=== PATIENT | male | born 1930 | race Caucasian/White ===

== ENCOUNTER 2018-01-06 21:12 | Emergency (ER) | payer OTHER, MEDICARE ==
[~2018-01-06] VITALS: Ht 170.2 cm; Wt 64.4 kg
[~2018-01-06 21:12] MED LIST: ACET-685 PO; ALBU0.63 NEB; ALLO300T PO; CETI10TA18 PO; CILO50TA PO; CIPR500T86 PO; COLC0.6T37 PO; CYCL10TA2 PO; DIPH1TAB PO; DOCU100C28 PO; DOCU250C8 PO; GABA300C10 PO; HYDR-3101 PO; LUBI24CA7 PO; PANT40TA3 PO; POLY17PO5 PO; RAMI2.5C28 PO; RIVA10TA PO; ROPI0.252 PO; ROPI0.5T PO; TRAM50TA PO; WARF3TAB52 PO
[2018-01-06 21:23] VITALS: BP 121/75
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
[2018-01-06] MEDS ORDERED: BOOSTRIX VACCINE SYRINGE IM ONE (21:30)
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
[2018-01-06 22:08] VITALS: BP 119/74
--- NOTE | 2018-01-06 22:08 | NUR ---
x-ray arrived back to the room from x-ray. c/o pain increasing in the left arm. notified the doctor. will give meds as soon as they are ordered. vital signs remain stable. comfort measures provided. family x 1 in the room. lw
[2018-01-06] MEDS ORDERED: SUBLIMAZE IV STA (22:12)
[2018-01-06] MEDS ORDERED: SUBLIMAZE ONE (22:17)
--- NOTE | 2018-01-06 22:18 | DIREP ---
PROCEDURE:XRAY FOREARM 2 VWS-LT COMPARISON:None. INDICATIONS:injury FINDINGS: BONES:Acute oblique/spiral fracture identified involving the midshaft of the right radius. On the AP view, there is radial displacement of the distal fracture segment by approximately 6.4 mm. On the lateral view there is angulation with the distal fracture segment being dorsal by approximately 8 mm and dorsal angulation. No fracture of the left ulna is seen. JOINTS:Normal. SOFT TISSUES:Extensive vascular calcifications involving the radial and ulnar artery's. OTHER:No additional findings. CONCLUSION:Acute spiral/oblique fracture of the midshaft of the left radius with radial and dorsal displacement of the distal fracture segment with dorsal angulation. No fracture of the ulna is seen on these two views. Dictated by: Stewart España MD on 01/06/2018 at 10:15 PM
--- NOTE | 2018-01-06 22:31 | DIREP ---
PROCEDURE: CT SPINE CERVICAL W/O COMPARISON:None. INDICATIONS:injury FINDINGS: ALIGNMENT:Mild levoconvexity, which is felt to be positional.. VERTEBRAE:Degenerative calcified pannus C1-C2.. PARASPINAL AREA:Normal. OTHER:Calcifications of bilateral carotid arteries incidentally noted. CERVICAL DISC LEVELS Multilevel disc space narrowing and disc osteophyte complexes with bilateral facet and uncovertebral joint hypertrophy. Moderate spinal canal stenosis noted at C4-C5 in C5-C6 from posterior disc bulge. No severe spinal canal stenosis. There is multilevel varying degrees of neural foraminal stenosis bilaterally. CONCLUSION:No visualized acute fracture with multilevel degenerative changes. Moderate spinal canal stenosis C4-C5 and C5-C6. Dictated by: Rubén Childers DO on 01/06/2018 at 10:25 PM
--- NOTE | 2018-01-06 22:34 | DIREP ---
PROCEDURE:XRAY WRIST MIN 3VW-LT COMPARISON:None. INDICATIONS:injury FINDINGS: BONES:Mildly comminuted spiral fracture involving the mid diaphysis of the left radius. There is approximately 6 mm of dorsal displacement of the distal fracture fragment. 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 SOFT TISSUES:Normal. OTHER:Atherosclerotic calcifications noted. CONCLUSION:Spiral fracture of the mid diaphysis of the left radius as detailed above. Approximately 6 mm dorsal displacement of the distal fracture fragment. No additional fractures seen. Dictated by: Rubén Childers DO on 01/06/2018 at 10:30 PM
--- NOTE | 2018-01-06 22:55 | NUR ---
splint left arm splint placed on patient after cleaning two skin tears on the top of the left hand. triple A ointment applied and bandages. lw
[2018-01-06 22:56] VITALS: BP 123/72
== END 2018-01-06 23:40 | disposition home or self-care (01) ==
LOC: ER 21:12 → EDBD 21:12 → ER 23:40
DX: S52.392A Other fracture of shaft of radius, left arm, initial encounter for closed fracture (principal); S63.502A Unspecified sprain of left wrist, initial encounter; S13.9XXA Sprain of joints and ligaments of unspecified parts of neck, initial encounter; E11.9 Type 2 diabetes mellitus without complications; I10 Essential (primary) hypertension; Z95.0 Presence of cardiac pacemaker; Z79.01 Long term (current) use of anticoagulants; Z79.899 Other long term (current) drug therapy; V49.9XXA Car occupant (driver) (passenger) injured in unspecified traffic accident, initial encounter; Y93.89 Activity, other specified; Y92.488 Other paved roadways as the place of occurrence of the external cause; Y99.8 Other external cause status
CPT/HCPCS: 29125; 72125; 73090; 73110; 96374; 99284; J3010

== ENCOUNTER 2018-06-27 16:18 | Emergency (ER) | payer MEDICARE ==
[~2018-06-27] VITALS: Ht 167.6 cm; Wt 70.8 kg
[~2018-06-27 16:18] MED LIST changes: -ROPI0.252 PO; +ROPI0.254 PO
--- NOTE | 2018-06-27 16:20 | NUR ---
ARRIVAL PATIENT TO ROOM 4, W/C, PATIENT STATES THAT HE HAD "TWO LITTLE PAINS AROUND HIS CHEST, THAT WENT AWAY. FIGURED I WOULD COME GET CHECKED." PATIENT DENIES ANY PAIN AT THIS TIME. 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 DEMPSEY ONCE. ASSESSMENT COMPLETED, CONNECTED TO ALL MONITORS, CITY COLLECTOR IN PLACE. AWAITING MD SCHNEIDER.
[2018-06-27 16:29] VITALS: BP 101/62
--- NOTE | 2018-06-27 16:47 | PCM.EKG ---
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
[2018-06-27 16:49] LABS: BASOPHIL % 0.4 % (0.0-0.2); EOSINOPHIL # 0.7 10^3/uL (0.0-0.2); EOSINOPHIL % 9.4 % (0.0-5.0); HEMOGLOBIN 11.8 g/dL (13.9-16.3); LYMPHOCYTES # 2.5 10^3/uL (1.0-4.8); LYMPHOCYTES % 35.7 % (24.0-44.0); MEAN CELL HGB 30.6 pg (26-34); MEAN CELL HGB CONCENTRATION 33.3 g/dL (33-37); MEAN CORP VOLUME 91.9 fL (78-100); MEAN PLATELET VOLUME 9.9 fL (7.8-11.0); MONOCYTES # 0.6 10^3/uL (0.3-0.8); MONOCYTES % 8.8 % (5.0-12.0); NEUTROPHIL # 3.2 10^3/uL (1.8-7.7); NEUTROPHILS % 45.7 % (41.0-85.0); RED CELL DISTRIBUTION WIDTH 15.9 % (11.5-14.5); WHITE BLOOD CELL 7.1 10^3/uL (4.5-11.0)
[2018-06-27 17:12] LABS: CARBON DIOXIDE 24.9 mmol/L (20.0-32); GLUCOSE 109 mg/dL (70-110)
[2018-06-27 17:13] LABS: ALANINE AMINOTRANSFERASE(ML) 21 U/L (12-78); ALKALINE PHOSPHATASE 64 U/L (50-136); ASPARTATE AMINO TRANSFERASE 20 U/L (0-35)
--- NOTE | 2018-06-27 17:15 | DIREP ---
PROCEDURE:CHEST 1 VIEW COMPARISON:[facility], CR, XRAY CHEST 2 VWS, 03/10/2016, 03:05 PM. INDICATIONS:Chest pain FINDINGS: LUNGS/PLEURA:Calcified granuloma at the left costophrenic angle. Shallow expansion of the lungs. The lungs are clear. No pneumonia, heart failure or effusions are seen. No pneumothorax, pneumomediastinum, aortic aneurysm or mediastinal widening is seen. VASCULATURE:Normal. Unremarkable pulmonary vasculature. CARDIAC:Normal. No cardiac silhouette abnormality or cardiomegaly. Right-sided approach for bipolar pacemaker lead placement. Stable since last study. EKG leads identified. MEDIASTINUM:Normal. No visible mass or adenopathy. BONES:Normal. No fracture or visible bony lesion. OTHER:Negative. CONCLUSION:Stable appearance of the right-sided pacemaker. No active disease. A calcified granuloma in the left lung base. Dictated by: Stewart España MD on 06/27/2018 at 05:13 PM
--- NOTE | 2018-06-27 17:17 | ER.PDOC ---
General Chief Complaint: Chest Pain-Cardiac Nature Stated Complaint: CHEST PAIN Time seen by MD: 16:45 Source: patient Exam Limitations: no limitations History of Present Illness Initial Comments Twitching left chest for a few seconds which went away. He decided to come to the ED to be checked. He denies any chest pain at this time. Timing/Duration: gone now Severity/Quality: mild Radiation: no radiation Activities at Onset: rest Nitro Today/Relief: No Nitro Taken Today Aspirin Today: 325 mg x 1 Associated Symptoms: denies symptoms Allergies: Coded Allergies: No Known Allergies (Unverified , 05/23/17) Home Meds Reported Medications Ropinirole Hcl (REQUIP) 0.5 Mg Tablet, 0.25 MG PO TID, TABLET 12/07/16 Albuterol Sulfate (ALBUTEROL SULFATE) 0.63 Mg/3 Ml Vial.neb, 1 VIAL NEB QID, # 150 MILLILITER 1 Refill 12/07/16 Tramadol Hcl (TRAMADOL HCL) 50 Mg Tablet, 1 TAB PO Q4 for PAIN, #90 TAB 12/07/16 Rivaroxaban (XARELTO) 10 Mg Tablet, 15 MG PO DAILY, TABLET 12/07/16 Ramipril 2.5MG (ALTACE 2.5MG) 2.5 Mg Capsule, 1.25 MG PO DAILY, CAPSULE 03/10/16 Lubiprostone (AMITIZA) 24 Mcg Capsule, 1 CAP PO BID PRN for CONSTIPATION, #60 CAP 5 Refills 01/08/16 Cetirizine Hcl (CETIRIZINE HCL) 10 Mg Tablet, 1 TAB PO DAILY PRN for ALLERGERIES , #30 TAB 5 Refills 01/08/16 Docusate Sodium (DOCUSATE SODIUM) 100 Mg Capsule, 250 MG PO DAILY, CAPSULE 05/20/14 Gabapentin (GABAPENTIN) 300 Mg Capsule, 1 CAP PO TID, #90 CAP 5 Refills 03/24/14 Allopurinol (ALLOPURINOL) 300 Mg Tablet, 1 TAB PO DAILY, #30 TAB 5 Refills 03/24/14 Past Medical History Medical History: diabetes, hypertension Surgical History: cholecystectomy, pacemaker/ICD, other Social History Smoking: non-smoker Alcohol Use: none Drug Use: none Constitutional: no symptoms reported EENTM: no symptoms reported Respiratory: no symptoms reported Cardiovascular: see HPI Gastrointestinal: no symptoms reported Genitourinary: no symptoms reported All Other Systems: Reviewed and Negative Physical Exam General Appearance: No Apparent Distress, WD/WN Neck: Non-Tender, Full Range of Motion, Supple, Normal Inspection Respiratory: chest non-tender, lungs clear, normal breath sounds, no respiratory distress, no accessory muscle use Cardiovascular: Normal Peripheral Pulses, Regular Rate, Rhythm, No Edema, No Gallop, No JVD, No Murmur Gastrointestinal: Normal Bowel Sounds, No Organomegaly, No Pulsatile Mass, Non Tender, Soft Extremities: Normal Range of Motion, Non-Tender, Normal Inspection, No Pedal Edema, No Calf Tenderness, Normal Capillary Refill Neurologic/Psychiatric: information technology coordinator II-XII NML as Tested, No Motor/Sensory Deficits, Alert, Normal Mood/Affect, Oriented x 3 Skin: Normal Color, Warm/Dry Results/Orders Results/Orders Laboratory Tests Test 06/27/18 16:42 White Blood Count 7.1 10^3/uL (4.5-11.0) Red Blood Count 3.85 10^6/uL (4.50-5.90) Hemoglobin 11.8 g/dL (13.9-16.3) Hematocrit 35.4 % (37.0-53.0) Mean Corpuscular Volume 91.9 fL (78-100) Mean Corpuscular Hemoglobin 30.6 pg (26-34) Mean Corpuscular Hemoglobin Concent 33.3 g/dL (33-37) Red Cell Distribution Width 15.9 % (11.5-14.5) Platelet Count 176 10^3/uL (150-400) Mean Platelet Volume 9.9 fL (7.8-11.0) Neutrophils (%) (Auto) 45.7 % (41.0-85.0) Lymphocytes (%) (Auto) 35.7 % (24.0-44.0) Monocytes (%) (Auto) 8.8 % (5.0-12.0) Neutrophils # (Auto) 3.2 10^3/uL (1.8-7.7) Lymphocytes # (Auto) 2.5 10^3/uL (1.0-4.8) Monocytes # (Auto) 0.6 10^3/uL (0.3-0.8) Absolute Immature Granulocyte (auto 0 10^3 u/L (0-2) Eosinophils % 9.4 % (0.0-5.0) Basophils % 0.4 % (0.0-0.2) Basophils # 0.0 10^3/uL (0.0-0.1) Eosinophil Count 0.7 10^3/uL (0.0-0.2) Sodium Level 142 mmol/L (132-145) Potassium Level 4.4 mmol/L (3.6-5.2) Chloride Level 106.0 mmol/L (96-109) Carbon Dioxide Level 24.9 mmol/L (20.0-32) Anion Gap 15.5 Blood Urea Nitrogen 35 mg/dL (7-18) Creatinine 1.64 mg/dL (0.59-1.40) Estimated GFR () 48.4 (>/=60) BUN/Creatinine Ratio 21.0 Glucose Level 109 mg/dL (70-110) Calcium Level 10.0 mg/dL (8.4-10.5) Total Bilirubin 0.4 mg/dL (0.2-1.0) Aspartate Amino Transf (AST/SGOT) 20 U/L (0-35) Alanine Aminotransferase (ALT/SGPT) 21 U/L (12-78) Alkaline Phosphatase 64 U/L (50-136) Total Creatine Kinase 75 U/L (39-308) Troponin I < 0.02 ng/mL (0.00-0.05) Pro-B-Type Natriuretic Peptide 250 pg/mL (0-450) Total Protein 7.2 g/dL (6.4-8.2) Albumin 3.9 g/dL (3.4-5.0) Globulin 3.3 Percent Immature Gran (Cell Imm) 0.00 % (0.00-0.50) Progress Progress Patient denies any chest pain in the ED. Feels fine to go home. Declined to be observed. Departure Time of Disposition: 17:27 Disposition: 01 HOME, SELF-CARE Impression: Primary Impression: Nonspecific chest pain Additional Impression: Anxiety Condition: Stable Referrals: ARIEL CAMPBELL STRAP BUCKLER (PCP) PRIMARY CARE PROVIDER Additional Instructions: F/U with your PCP tomorrow. Duration or Time Spent with Pa: 60 mins Problem Qualifiers LOI CUBA MD Jun 27, 2018 17:17
[2018-06-27 17:40] VITALS: BP 100/56
[2018-06-27 17:44] VITALS: BP 101/62
== END 2018-06-27 17:40 | disposition home or self-care (01) ==
LOC: ER 16:18
DX: F41.9 Anxiety disorder, unspecified (principal); E11.9 Type 2 diabetes mellitus without complications; I10 Essential (primary) hypertension; Z90.49 Acquired absence of other specified parts of digestive tract; Z95.0 Presence of cardiac pacemaker; Z79.899 Other long term (current) drug therapy
CPT/HCPCS: 36415; 71045; 80053; 82550; 83880; 84484; 85025; 93005; 99284

== ENCOUNTER 2018-12-15 11:01 | Emergency (ER) | payer MEDICARE ==
[~2018-12-15] VITALS: Ht 162.6 cm; Wt 60.8 kg
[2018-12-15 11:31] VITALS: BP 96/52
--- NOTE | 2018-12-15 11:50 | PCM.EKG ---
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
[2018-12-15 11:55] LABS: BASOPHIL % 0.3 % (0.0-0.2); EOSINOPHIL # 0.4 10^3/uL (0.0-0.2); EOSINOPHIL % 4.8 % (0.0-5.0); HEMOGLOBIN 11.7 g/dL (13.9-16.3); LYMPHOCYTES # 2.5 10^3/uL (1.0-4.8); LYMPHOCYTES % 29.2 % (24.0-44.0); MEAN CELL HGB 31.4 pg (26-34); MEAN CELL HGB CONCENTRATION 34.4 g/dL (33-37); MEAN CORP VOLUME 91.2 fL (78-100); MEAN PLATELET VOLUME 9.5 fL (7.8-11.0); MONOCYTES # 0.8 10^3/uL (0.3-0.8); MONOCYTES % 8.6 % (5.0-12.0); NEUTROPHILS % 56.9 % (41.0-85.0); RED CELL DISTRIBUTION WIDTH 14.9 % (11.5-14.5); WHITE BLOOD CELL 8.7 10^3/uL (4.5-11.0)
[2018-12-15] MEDS ORDERED: ANTIVERT PO STA (11:56)
[2018-12-15 12:15] LABS: CALCIUM 10.3 mg/dL (8.4-10.5); CARBON DIOXIDE 21.4 mmol/L (20.0-32)
[2018-12-15 13:07] VITALS: BP 110/67
--- NOTE | 2018-12-15 13:11 | ER.PDOC ---
General Chief Complaint: General Complaint Stated Complaint: DIZZINESS,LOW BLOOD PRESSURE PER DOCTOR/ LIGHT HEADED Time seen by MD: 13:00 Source: patient Exam Limitations: no limitations History of Present Illness Occurred: yesterday Severity: mild Associated Symptoms: sense of movement, spinning, weakness, light headness Decreased Ability to Stand: off balance Usually: walks w/o assistance Worsened By: changing position, movement of head, standing postion Prior symptoms/Treatment: Similar symptoms previous Allergies: Coded Allergies: No Known Allergies (Unverified , 05/23/17) Home Meds Reported Medications Ropinirole Hcl (REQUIP) 0.5 Mg Tablet, 0.25 MG PO TID, TABLET 12/07/16 Albuterol Sulfate (ALBUTEROL SULFATE) 0.63 Mg/3 Ml Vial.neb, 1 VIAL NEB QID, #150 MILLILITER 1 Refill 12/07/16 Tramadol Hcl (TRAMADOL HCL) 50 Mg Tablet, 1 TAB PO Q4 for PAIN, #90 TAB 12/07/16 Rivaroxaban (XARELTO) 10 Mg Tablet, 15 MG PO DAILY, TABLET 12/07/16 Ramipril 2.5MG (ALTACE 2.5MG) 2.5 Mg Capsule, 1.25 MG PO DAILY, CAPSULE 03/10/16 Lubiprostone (AMITIZA) 24 Mcg Capsule, 1 CAP PO BID PRN for CONSTIPATION, #60 CAP 5 Refills 01/08/16 Cetirizine Hcl (CETIRIZINE HCL) 10 Mg Tablet, 1 TAB PO DAILY PRN for ALLERGERIES, #30 TAB 5 Refills 01/08/16 Docusate Sodium (DOCUSATE SODIUM) 100 Mg Capsule, 250 MG PO DAILY, CAPSULE 05/20/14 Gabapentin (GABAPENTIN) 300 Mg Capsule, 1 CAP PO TID, #90 CAP 5 Refills 03/24/14 Allopurinol (ALLOPURINOL) 300 Mg Tablet, 1 TAB PO DAILY, #30 TAB 5 Refills 03/24/14 Past Medical History Medical History: cardiac problems, diabetes, hypertension Surgical History: pacemaker/ICD Social History Smoking: non-smoker Alcohol Use: none Drug Use: none Reviewed Nursing Reviewed: Vital Signs, Abn. Noted Review of Systems All Other Systems: Reviewed and Negative Physical Exam General Appearance: alert, no distress EENT: nml eye inspection, PERRL, no nystagmus, nml ENT inspection, pharynx nml, TM's nml Neck: supple Respiratory: no resp distress, breath sounds nml CVS: reg rate & rhythm, heart sounds.nml Abdomen: non-tender, no organomegaly, no distention Skin: color nml, no rash, warm/dry Extremities: non-tender, nml ROM, no pedal edema Neuro/Psych: nml orientation, nml speech/cognition, nml mood/affect Cranial Nerves: nml as tested, no evidence of acute CVA Cerebellar: nml as tested Sensorimotor: nml motor, nml sensation Results/Orders Results/Orders Orders - JAMES BARRAZA MD Cbc With Auto Diff (12/15/18 11:42) Comprehensive Metabolic Panel (12/15/18 11:42) Creatine Kinase (12/15/18 11:42) Troponin I (12/15/18 11:42) Probnp B-Type Model And Mold Maker Plaster (12/15/18 11:42) PT (12/15/18 11:42) Partial Thromboplastin Time. (12/15/18 11:42) Helicobacter Pylori (12/15/18 11:42) D-Dimer (12/15/18 11:42) Ekg-Routine (12/15/18 11:42) Meclizine Hcl (Antivert) (12/15/18 11:56) Vital Signs Date Time Temp Pulse Resp B/P (MAP) Pulse Ox O2 Delivery O2 Flow Rate FiO2 12/15/18 13:07 65 18 110/67 (81) 97 Room Air 12/15/18 11:31 98.0 77 18 96/52 (67) 99 Room Air 98.0 12/15/18 11:28 98.0 77 18 98.0 12/15/18 11:28 98.4 75 18 99 Room Air 98.4 Administered Medications Medications (Trade) Dose Ordered Sig/Manuelito Route PRN Reason Start Time Stop Time Status Last Admin Dose Admin Meclizine HCl (Antivert) 25 mg STAT STAT PO 12/15/18 11:56 12/15/18 11:57 DC 12/15/18 12:01 25 MG Laboratory Tests Test 12/15/18 11:48 White Blood Count 8.7 10^3/uL (4.5-11.0) Red Blood Count 3.73 10^6/uL (4.50-5.90) L Hemoglobin 11.7 g/dL (13.9-16.3) L Hematocrit 34.0 % (37.0-53.0) L Mean Corpuscular Volume 91.2 fL (78-100) Mean Corpuscular Hemoglobin 31.4 pg (26-34) Mean Corpuscular Hemoglobin Concent 34.4 g/dL (33-37) Red Cell Distribution Width 14.9 % (11.5-14.5) H Platelet Count 202 10^3/uL (150-400) Mean Platelet Volume 9.5 fL (7.8-11.0) Neutrophils (%) (Auto) 56.9 % (41.0-85.0) Lymphocytes (%) (Auto) 29.2 % (24.0-44.0) Monocytes (%) (Auto) 8.6 % (5.0-12.0) Neutrophils # (Auto) 5.0 10^3/uL (1.8-7.7) Lymphocytes # (Auto) 2.5 10^3/uL (1.0-4.8) Monocytes # (Auto) 0.8 10^3/uL (0.3-0.8) Absolute Immature Granulocyte (auto 0.02 10^3 u/L (0-2) Immature Granulocytes % 0.20 % (0.00-0.50) Eosinophils % 4.8 % (0.0-5.0) Basophils % 0.3 % (0.0-0.2) H Basophils # 0.0 10^3/uL (0.0-0.1) Eosinophil Count 0.4 10^3/uL (0.0-0.2) H Prothrombin Time 11.0 SEC (9.8-11.9) Prothrombin Time INR (Non-Therap) 1.1 PTT 27.6 SEC (24.67-30.72) D-Dimer 0.41 mg/L (0.19-0.49) Sodium Level 140 mmol/L (132-145) Potassium Level 5.0 mmol/L (3.6-5.2) Chloride Level 105.0 mmol/L (96-109) Carbon Dioxide Level 21.4 mmol/L (20.0-32) Anion Gap 18.6 Blood Urea Nitrogen 50 mg/dL (7-18) H Creatinine 1.98 mg/dL (0.59-1.40) H Estimated GFR () 38.9 (>/=60) BUN/Creatinine Ratio 25.0 Glucose Level 94 mg/dL (70-110) Calcium Level 10.3 mg/dL (8.4-10.5) Total Bilirubin 0.4 mg/dL (0.2-1.0) Aspartate Amino Transferase (AST) 20 U/L (0-35) Alanine Aminotransferase (ALT) 17 U/L (12-78) Alkaline Phosphatase 61 U/L (50-136) Total Creatine Kinase 88 U/L (39-308) Troponin I 0.02 ng/mL (0.00-0.05) Pro-B-Type Natriuretic Peptide 241 pg/mL (0-450) Total Protein 7.1 g/dL (6.4-8.2) Albumin 3.7 g/dL (3.4-5.0) Globulin 3.4 Helicobacter pylori Screen NEGATIVE (NEGATIVE) EKG/XRAY/CT/US EKG Comments: PACED RYTHM Departure Time of Disposition: 14:00 Disposition: 01 HOME, SELF-CARE Impression: Primary Impression: Dizziness Additional Impression: Medication adverse effect Condition: Improved Referrals: ARIEL CAMPBELL DARKROOM TECHNICIAN (PCP) PRIMARY CARE PROVIDER Duration or Time Spent with Pa: 1 HR Problem Qualifiers JAMES BARRAZA MD December 15, 2018 13:11
[2018-12-15 13:13] VITALS: BP 110/67
== END 2018-12-15 13:12 | disposition home or self-care (01) ==
LOC: ER 11:01
DX: R42 Dizziness and giddiness (principal); T50.905A Adverse effect of unspecified drugs, medicaments and biological substances, initial encounter; R53.1 Weakness; E11.9 Type 2 diabetes mellitus without complications; I10 Essential (primary) hypertension; Z79.899 Other long term (current) drug therapy; Z95.0 Presence of cardiac pacemaker; Z79.01 Long term (current) use of anticoagulants; Z79.891 Long term (current) use of opiate analgesic; Y92.89 Other specified places as the place of occurrence of the external cause
CPT/HCPCS: 36415; 80053; 82550; 83880; 84484; 85025; 85379; 85610; 85730; 86677; 93005; 99285; J8597

== ENCOUNTER 2018-12-23 12:29 | Emergency (ER) | payer MEDICARE ==
[~2018-12-23] VITALS: Ht 167.6 cm; Wt 60.8 kg
[2018-12-23 12:54] VITALS: BP 119/70
--- NOTE | 2018-12-23 12:55 | ER.PDOC ---
General Chief Complaint: Trauma Stated Complaint: HEAD INJURY Time seen by MD: 12:52 Source: patient Exam Limitations: no limitations History of Present Illness Initial Comments Pt fell backward on his porch, after tripping, no LOC Occurred: just prior to arrival Where: home Severity: mild Location: occipital (left) Method of Injury: fell Allergies: Coded Allergies: No Known Allergies (Unverified , 05/23/17) Home Meds Reported Medications Ropinirole Hcl (REQUIP) 0.5 Mg Tablet, 0.25 MG PO TID, TABLET 12/07/16 Albuterol Sulfate (ALBUTEROL SULFATE) 0.63 Mg/3 Ml Vial.neb, 1 VIAL NEB QID, #150 MILLILITER 1 Refill 12/07/16 Tramadol Hcl (TRAMADOL HCL) 50 Mg Tablet, 1 TAB PO Q4 for PAIN, #90 TAB 12/07/16 Rivaroxaban (XARELTO) 10 Mg Tablet, 15 MG PO DAILY, TABLET 12/07/16 Ramipril 2.5MG (ALTACE 2.5MG) 2.5 Mg Capsule, 1.25 MG PO DAILY, CAPSULE 03/10/16 Lubiprostone (AMITIZA) 24 Mcg Capsule, 1 CAP PO BID PRN for CONSTIPATION, #60 CAP 5 Refills 01/08/16 Cetirizine Hcl (CETIRIZINE HCL) 10 Mg Tablet, 1 TAB PO DAILY PRN for ALLERGERIES, #30 TAB 5 Refills 01/08/16 Docusate Sodium (DOCUSATE SODIUM) 100 Mg Capsule, 250 MG PO DAILY, CAPSULE 05/20/14 Gabapentin (GABAPENTIN) 300 Mg Capsule, 1 CAP PO TID, #90 CAP 5 Refills 03/24/14 Allopurinol (ALLOPURINOL) 300 Mg Tablet, 1 TAB PO DAILY, #30 TAB 5 Refills 03/24/14 Past Medical History Medical History: diabetes, hypertension Surgical History: back, pacemaker/ICD Social History Smoking: non-smoker Alcohol Use: none Drug Use: none Review of Systems Constitutional: no symptoms reported Eyes: no symptoms reported Ears, Nose, Mouth, Throat: no symptoms reported Respiratory: no symptoms reported Cardiovascular: no symptoms reported Gastrointestinal: no symptoms reported Genitourinary: no symptoms reported Musculoskeletal: no symptoms reported Skin: see HPI Psychiatric/Neurological: see HPI Endocrine: no symptoms reported Hematologic/Lymphatic: no symptoms reported Physical Exam General Appearance: Alert, No Apparent Distress, WD/WN Head: Contusions (left occipital/mastoid area) Eye: PERRL, EOMI, No nystagmus ENT: Nml external inspection, Pharynx nml Neck: non-tender, painless ROM, trachea midline Cardiovascular/Respiratory: Regular Rate, Rhythm, No M/R/G, Normal Peripheral Pulses, No JVD, Normal Breath Sounds, No Respiratory Distress Gastrointestinal: Normal Bowel Sounds, No Organomegaly, No Pulsatile Mass, Non Tender, Soft Back: Normal Inspection, No CVA Tenderness, No Vertebral Tenderness Extremities: Normal Range of Motion, Non-Tender, Normal Inspection, No Pedal Edema, No Calf Tenderness, Normal Capillary Refill NEURO/PSYCH: Alert, Oriented x3, Cooperative, Interactive, Mood/affect nml Cranial Nerves: Normal Hearing, Normal Speech, PERRL Coordination/Gait: Normal Finger to Nose, Normal Gait Motor/Sensory: No Motor Deficit, No Sensory Deficit, No Pronator Drift, Negative Babinski's Sign Skin: Normal Color, Warm/Dry Lymphatic: No Adenopathy [place] Coma Score Best Eye Response: (4) Open Spontaneously Best Verbal Response: (5) Oriented Best Motor Response: (6) Obeys Commands Results/Orders Results/Orders Orders - DAVID PALUMBO MD Ct Head Wo Contrast (12/23/18 12:53) Vital Signs Date Time Temp Pulse Resp B/P (MAP) Pulse Ox O2 Delivery O2 Flow Rate FiO2 12/23/18 12:54 97.7 76 14 119/70 (86) 98 Room Air 97.7 12/23/18 12:54 14 12/23/18 12:48 97.7 76 14 97.7 12/23/18 12:48 97.7 76 14 98 Room Air 97.7 12/15/18 13:13 65 Departure Time of Disposition: 13:54 Disposition: 01 HOME, SELF-CARE Impression: Primary Impression: Head injury Condition: Stable Referrals: ARIEL CAMPBELL ACID CORRECTION HAND (PCP) PRIMARY CARE PROVIDER Duration or Time Spent with Pa: DAVID SANTOS MD December 23, 2018 12:55
--- NOTE | 2018-12-23 13:08 | NUR ---
CT PT BACK FROM CT SCAN.
--- NOTE | 2018-12-23 13:52 | DIREP ---
PROCEDURE: CT HEAD BRAIN W/O CONTRAST TECHNIQUE:Contiguous 5.0 mm transaxial sections were obtained from the vertex to skull base without the use of intravenous contrast. COMPARISON:CT, CT SPINE CERVICAL W/O, 01/06/2018, 09:44 PM. INDICATIONS:Head injury FINDINGS: VENTRICLES:Mildly prominent, consistent with degree of age related cortical atrophy. CEREBRUM:No acute intracranial hemorrhage or mass effect. Hypoattenuation throughout the deep periventricular and subcortical white matter, consistent with chronic small vessel ischemia. CEREBELLUM:Normal. BRAINSTEM:Normal. SKULL:Normal. SINUSES:Well pneumatized. OTHER:Negative. CONCLUSION: 1. No acute intracranial hemorrhage or mass effect. 2. Age-related involutional and chronic microvascular ischemic changes. Dictated by: Chris España MD on 12/23/2018 at 01:49 PM
[2018-12-23 14:26] VITALS: BP 119/70
== END 2018-12-23 14:20 | disposition home or self-care (01) ==
LOC: ER 12:29
DX: S00.03XA Contusion of scalp, initial encounter (principal); E11.9 Type 2 diabetes mellitus without complications; I10 Essential (primary) hypertension; Z95.0 Presence of cardiac pacemaker; Z79.899 Other long term (current) drug therapy; W01.0XXA Fall on same level from slipping, tripping and stumbling without subsequent striking against object, initial encounter; Y93.89 Activity, other specified; Y92.89 Other specified places as the place of occurrence of the external cause; Y99.8 Other external cause status
CPT/HCPCS: 70450; 99284

== ENCOUNTER 2019-01-01 14:54 | Emergency (ER) | payer MEDICARE ==
[~2019-01-01] VITALS: Ht 165.1 cm; Wt 64.0 kg
[2019-01-01 18:49] VITALS: BP 121/59
--- NOTE | 2019-01-01 18:57 | ER.PDOC ---
General Chief Complaint: Requesting Medical Care Stated Complaint: LEFT FOOT SWELLING HOLDING HEAT TRAVEL OUT OF US: No Time seen by MD: 19:00 Source: patient Exam Limitations: no limitations History of Present Illness Timing/Duration: 24 hours Severity: mild Modifying Factors: improves with cold therapy, improves with movement, improves with rest Associated Symptoms: denies symptoms Allergies: Coded Allergies: No Known Allergies (Unverified , 05/23/17) Home Meds Reported Medications Ropinirole Hcl (REQUIP) 0.5 Mg Tablet, 0.25 MG PO TID, TABLET 12/07/16 Albuterol Sulfate (ALBUTEROL SULFATE) 0.63 Mg/3 Ml Vial.neb, 1 VIAL NEB QID, #150 MILLILITER 1 Refill 12/07/16 Tramadol Hcl (TRAMADOL HCL) 50 Mg Tablet, 1 TAB PO Q4 for PAIN, #90 TAB 12/07/16 Rivaroxaban (XARELTO) 10 Mg Tablet, 15 MG PO DAILY, TABLET 12/07/16 Ramipril 2.5MG (ALTACE 2.5MG) 2.5 Mg Capsule, 1.25 MG PO DAILY, CAPSULE 03/10/16 Lubiprostone (AMITIZA) 24 Mcg Capsule, 1 CAP PO BID PRN for CONSTIPATION, #60 CAP 5 Refills 01/08/16 Cetirizine Hcl (CETIRIZINE HCL) 10 Mg Tablet, 1 TAB PO DAILY PRN for ALLERGER IES, #30 TAB 5 Refills 01/08/16 Docusate Sodium (DOCUSATE SODIUM) 100 Mg Capsule, 250 MG PO DAILY, CAPSULE 05/20/14 Gabapentin (GABAPENTIN) 300 Mg Capsule, 1 CAP PO TID, #90 CAP 5 Refills 03/24/14 Allopurinol (ALLOPURINOL) 300 Mg Tablet, 1 TAB PO DAILY, #30 TAB 5 Refills 03/24/14 Past Medical History Surgical History: back, pacemaker/ICD Social History Drug Use: none Review of Systems All Other Systems: Reviewed and Negative Physical Exam General Appearance: No Apparent Distress EENT: eyes nml inspection Neck: Non-Tender Respiratory: chest non-tender CVS: reg rate & rhythm Gastrointestinal: Normal Bowel Sounds Extremities: Inflammation, Pedal Edema, Swelling Skin: Normal Color Lymphatic: No Adenopathy Results/Orders Results/Orders Vital Signs Date Time Temp Pulse Resp B/P (MAP) Pulse Ox O2 Delivery O2 Flow Rate FiO2 5/25/19 14:26 76 Course Duration or Total Time Spent w: 15 Vitals & review Data Vital Sign - Last 24 Hours 12/23/18 14:26 Pulse 76 Sepsis Infection Criteria Pres: None Departure Time of Disposition: 19:00 Disposition: 01 HOME, SELF-CARE Impression: Primary Impression: Acute gout Condition: Improved Referrals: ARIEL CAMPBELL LAUNDRY MACHINE OPERATOR (PCP) PRIMARY CARE PROVIDER Duration or Time Spent with Pa: 2O JAMES GALLEGOS MD Jan 01, 2019 18:57
[2019-01-01] MEDS ORDERED: TORADOL IM STA (18:59)
[2019-01-01] MEDS ORDERED: KENALOG-40 IM ONE (19:00)
[2019-01-01] MEDS ORDERED: KENALOG-40 ONE (19:22)
[2019-01-01] MEDS ORDERED: TORADOL ONE (19:22)
[2019-01-01 20:19] VITALS: BP 102/60
[2019-01-01 20:23] VITALS: BP 102/60
[2019-01-02 00:50] VITALS: BP 102/60
== END 2019-01-01 20:23 | disposition home or self-care (01) ==
LOC: ER 14:54
DX: M10.9 Gout, unspecified (principal); Z79.899 Other long term (current) drug therapy; Z95.0 Presence of cardiac pacemaker
CPT/HCPCS: 96372; 99284; J1885; J3301

== ENCOUNTER 2019-04-02 21:15 | Emergency (ER) | payer MEDICARE ==
[~2019-04-02] VITALS: Ht 165.1 cm; Wt 61.2 kg
--- NOTE | 2019-04-02 21:25 | NUR ---
Arrival: 88 year old male ambulates into ER with grandson states " I got [employer] in my eyes. about 2 hrs ago, called [employer] they said to flush them good and take a shower, I did but thought I better come on out."
--- NOTE | 2019-04-02 21:40 | NUR ---
[employer] notified, flush eyes well with water. Main ingredient in [employer] Mechanic is peppermint and it will burn.
[2019-04-02 22:03] VITALS: BP 124/56
--- NOTE | 2019-04-02 22:08 | ER.PDOC ---
General Chief Complaint: Eye Problems Stated Complaint: BUG SPRAY IN EYES Time seen by MD: 22:03 Source: patient Exam Limitations: no limitations History of Present Illness Initial Comments Mistakenly sprayed Bug spray (Natalia Can) in both eyes which burn. He flushed both eyes several times prior to coming to the ED. I happened about 4 hours ago. Timing/Duration: gradual Associated Symptoms: burning Location: both eyes Severity: moderate Context: foreign body Allergies: Coded Allergies: No Known Allergies (Unverified , 05/23/17) Home Meds Reported Medications Ropinirole Hcl (REQUIP) 0.5 Mg Tablet, 0.25 MG PO TID, TABLET 12/07/16 Albuterol Sulfate (ALBUTEROL SULFATE) 0.63 Mg/3 Ml Vial.neb, 1 VIAL NEB QID, #150 MILLILITER 1 Refill 12/07/16 Tramadol Hcl (TRAMADOL HCL) 50 Mg Tablet, 1 TAB PO Q4 for PAIN, #90 TAB 12/07/16 Rivaroxaban (XARELTO) 10 Mg Tablet, 15 MG PO DAILY, TABLET 12/07/16 Ramipril 2.5MG (ALTACE 2.5MG) 2.5 Mg Capsule, 1.25 MG PO DAILY, CAPSULE 03/10/16 Lubiprostone (AMITIZA) 24 Mcg Capsule, 1 CAP PO BID PRN for CONSTIPATION, #60 CAP 5 Refills 01/08/16 Cetirizine Hcl (CETIRIZINE HCL) 10 Mg Tablet, 1 TAB PO DAILY PRN for ALLERGERIES, #30 TAB 5 Refills 01/08/16 Docusate Sodium (DOCUSATE SODIUM) 100 Mg Capsule, 250 MG PO DAILY, CAPSULE 05/20/14 Gabapentin (GABAPENTIN) 300 Mg Capsule, 1 CAP PO TID, #90 CAP 5 Refills 03/24/14 Allopurinol (ALLOPURINOL) 300 Mg Tablet, 1 TAB PO DAILY, #30 TAB 5 Refills 03/24/14 Past Medical History Medical History: no pertinent history Surgical History: back, renal Social History Smoking: non-smoker Alcohol Use: none Drug Use: none Constitutional: no symptoms reported Eyes: see HPI Mouth: no symptoms reported Throat: no symptoms reported Respiratory: no symptoms reported Cardiovascular: no symptoms reported Gastrointestinal: no symptoms reported All Other Systems: Reviewed and Negative Physical Exam General Appearance: alert, no distress Eyelid: nml inspection Conjunctiva/Sclera: (R) injected Corneas: nml inspection EOM's: intact, no nystagmus Pupils: PERRL, nml accommodation Head/ENT: nml inspection, pharynx nml Neck/Back: nml inspection, painless ROM Resp/CVS: no resp distress, lungs clear, heart sounds nml, reg. rate & rhythm Abdomen: non-tender, no organomegaly NEURO/PSYCH: oriented X3, mood/effect nml Results/Orders Results/Orders Vital Signs Date Time Temp Pulse Resp B/P (MAP) Pulse Ox O2 Delivery O2 Flow Rate FiO2 04/02/19 21:53 98.1 75 16 04/02/19 21:53 98.1 75 16 95 Room Air Progress Progress RN called Poison Control and they recommended Flushing eyes which I did multiple times. Course Duration or Total Time Spent w: 2O MIN Vitals & review Data Vital Sign - Last 24 Hours 04/02/19 04/02/19 21:53 21:53 Temp 98.1 98.1 Pulse 75 75 Resp 16 16 Pulse Ox 95 O2 Delivery Room Air Sepsis Infection Criteria Pres: None O2 Sat by Pulse Oximetry: 95 Departure Time of Disposition: 22:07 Disposition: 01 HOME, SELF-CARE Impression: Primary Impression: Injury due to foreign body Condition: Improved Referrals: ARIEL CAMPBELL FACILITIES MAINTENANCE SUPERVISOR (PCP) PRIMARY CARE PROVIDER Additional Instructions: F/U with Chain Splitter at [facility] tomorrow if no improvement. Duration or Time Spent with Pa: 20 mins LOI CUBA MD Apr 02, 2019 22:08
[2019-04-02 22:22] VITALS: BP 118/68
== END 2019-04-02 22:25 | disposition home or self-care (01) ==
LOC: ER 21:15
DX: T60.8X1A Toxic effect of other pesticides, accidental (unintentional), initial encounter (principal); T26.82XA Corrosions of other specified parts of left eye and adnexa, initial encounter; T26.81XA Corrosions of other specified parts of right eye and adnexa, initial encounter; Z79.891 Long term (current) use of opiate analgesic; Z79.899 Other long term (current) drug therapy; Z79.01 Long term (current) use of anticoagulants; Z98.890 Other specified postprocedural states; Y93.89 Activity, other specified; Y92.89 Other specified places as the place of occurrence of the external cause; Y99.8 Other external cause status
CPT/HCPCS: 99283

== ENCOUNTER 2019-04-08 12:04 | Emergency (ER) | payer MEDICARE ==
[~2019-04-08] VITALS: Ht 165.1 cm; Wt 62.6 kg
[2019-04-08 12:18] VITALS: BP 149/76
--- NOTE | 2019-04-08 12:19 | NUR ---
ARRIVAL PATIENT ARRIVED TO ED5 AMBULATORY, C/O OF RIGHT ARM PAIN FROM A FALL 3-4 DAYS AGO, PATIENT STATES HE WAS WALKING IN THE KITCHEN AND TRIPPED OVER SOME WATER BOTTLES. HE LANDED ON HE RIGHT ELBOW. PAIN INCREASED CAME TO THE ED FOR EVAL.
[2019-04-08] MEDS ORDERED: TORADOL IM STA (12:29)
[2019-04-08] MEDS ORDERED: TORADOL ONE (12:32)
--- NOTE | 2019-04-08 12:48 | ER.PDOC ---
General Chief Complaint: Extremities Stated Complaint: FELL RIGHT ARM PAIN Time seen by MD: 12:46 Source: patient Exam Limitations: no limitations History of Present Illness Initial Comments Right forearm pain S/P fall 4 days ago. Where: home Severity: moderate Modifying Factors: pain on movement Allergies: Coded Allergies: No Known Allergies (Unverified , 05/23/17) Home Meds Reported Medications Ropinirole Hcl (REQUIP) 0.5 Mg Tablet, 0.25 MG PO TID, TABLET 12/07/16 Albuterol Sulfate (ALBUTEROL SULFATE) 0.63 Mg/3 Ml Vial.neb, 1 VIAL NEB QID, #150 MILLILITER 1 Refill 12/07/16 Tramadol Hcl (TRAMADOL HCL) 50 Mg Tablet, 1 TAB PO Q4 for PAIN, #90 TAB 12/07/16 Rivaroxaban (XARELTO) 10 Mg Tablet, 15 MG PO DAILY, TABLET 12/07/16 Ramipril 2.5MG (ALTACE 2.5MG) 2.5 Mg Capsule, 1.25 MG PO DAILY, CAPSULE 03/10/16 Lubiprostone (AMITIZA) 24 Mcg Capsule, 1 CAP PO BID PRN for CONSTIPATION, #60 CAP 5 Refills 01/08/16 Cetirizine Hcl (CETIRIZINE HCL) 10 Mg Tablet, 1 TAB PO DAILY PRN for ALLERGERIES, #30 TAB 5 Refills 01/08/16 Docusate Sodium (DOCUSATE SODIUM) 100 Mg Capsule, 250 MG PO DAILY, CAPSULE 05/20/14 Gabapentin (GABAPENTIN) 300 Mg Capsule, 1 CAP PO TID, #90 CAP 5 Refills 03/24/14 Allopurinol (ALLOPURINOL) 300 Mg Tablet, 1 TAB PO DAILY, #30 TAB 5 Refills 03/24/14 Past Medical History Medical History: cardiac problems, other Surgical History: back, pacemaker/ICD Social History Smoking: non-smoker Alcohol Use: none Drug Use: none Review of Systems Constitutional: no symptoms reported Respiratory: no symptoms reported Cardiovascular: no symptoms reported Gastrointestinal: no symptoms reported Musculoskeletal: see HPI All Other Systems: Reviewed and Negative Physical Exam General Appearance: Alert, No Apparent Distress Hand: nml inspection, non-tender Wrist: nml inspection, non-tender, nml ROM Arm/Shoulder: tenderness (tenderness right forearm) Neuro/Vasc/Tendon: sensation nml, motor nml, no vascular compromise, tendon fu nction nml Head/ENT: nml inspection, pharynx nml Neck/Back: nml inspection, non-tender Respiratory: chest non-tender, breath sounds nml CVS: heart sounds normal Abdomen: non-tender, no organomegaly Results/Orders Results/Orders Orders - LOI CUBA MD Xr Forearm Rt (04/08/19 12:29) Ketorolac Tromethamine (Toradol) (04/08/19 12:29) Ketorolac Tromethamine (Toradol) (04/08/19 12:32) Xr Elbow Rt (04/08/19 13:53) Morphine Sulfate (Morphine Sulfate) (04/08/19 14:12) Vital Signs Date Time Temp Pulse Resp B/P (MAP) Pulse Ox O2 Delivery O2 Flow Rate FiO2 04/08/19 13:51 98.1 70 18 145/75 (98) 97 Room Air 04/08/19 12:18 98.1 79 18 149/76 (100) 97 Room Air 04/08/19 12:18 98.1 79 18 04/08/19 12:15 98.1 79 18 97 Room Air 04/02/19 22:22 68 Administered Medications Medications (Trade) Dose Ordered Sig/Manuelito Route PRN Reason Start Time Stop Time Status Last Admin Dose Admin Ketorolac Tromethamine (Toradol) 30 mg STAT STAT IM 04/08/19 12:29 04/08/19 12:31 DC 04/08/19 12:36 30 MG EKG/XRAY/CT/US XRAY Comments: No fracture of right forearm Departure Time of Disposition: 14:14 Disposition: 01 HOME, SELF-CARE Impression: Primary Impression: Injury, forearm Condition: Stable Referrals: ARIEL CAMPBELL GAS PLANT TECHNICIAN (PCP) PRIMARY CARE PROVIDER Additional Instructions: Tramadol Ibuprofen F/U with your PCP this week Duration or Time Spent with Pa: 45 mins Problem Qualifiers Primary Impression: Injury, forearm Encounter type: initial encounter Laterality: right Qualified Codes: S59.911A - Unspecified injury of right forearm, initial encounter LOI CUBA MD Apr 08, 2019 12:48
--- NOTE | 2019-04-08 13:50 | DIREP ---
PROCEDURE:XRAY FOREARM 2 VWS-RT COMPARISON:None. INDICATIONS:Pain/injury FINDINGS: Three views of the right forearm. No fracture or dislocation identified. If there is injury suspected at the right wrist or elbow, please consider dedicated views as images of the forearm are not tailored to optimally evaluate these joints. Calcified arterial disease. Degenerative changes in the visualized right hand and wrist. Ossific fragments at the lateral condyle of the humerus appear degenerative. No radiopaque foreign body. CONCLUSION: 1. No fracture of the right forearm identified, please see above comment. Dictated by: Nathaly Parson MD on 04/08/2019 at 01:46 PM
[2019-04-08 13:51] VITALS: BP 145/75
[2019-04-08] MEDS ORDERED: MORPHINE SULFATE IV STA (14:12)
[2019-04-08] MEDS ORDERED: MORPHINE SULFATE ONE (14:18)
[2019-04-08 14:30] VITALS: BP 145/75
--- NOTE | 2019-04-08 14:31 | DIREP ---
PROCEDURE:XRAY ELBOW 2VWS-RT COMPARISON:[facility], , XRAY FOREARM 2 VWS-RT, 04/08/2019, 01:04 PM. INDICATIONS:Pain/injury FINDINGS:Single lateral view of the left elbow. BONES:Single view is suboptimal to rule out a fracture of the elbow. The view of the forearm has the joint in the periphery and due to parallax subtle fractures can be obscured. JOINTS:Mild degenerative change with small osteophyte formations of the elbow. No displaced anterior or posterior fat pads. SOFT TISSUES:Vascular calcifications are noted. OTHER:Normal. CONCLUSION:No clear evidence of fracture on this single lateral view of the elbow. No evidence of joint effusion. Pain persists at the elbow of recommend obtaining a complete examination including at least 2 or 3 views. Dictated by: Trevor Balderrama MD on 04/08/2019 at 02:27 PM
== END 2019-04-08 14:32 | disposition home or self-care (01) ==
LOC: ER 12:04
DX: S59.911A Unspecified injury of right forearm, initial encounter (principal); Z98.890 Other specified postprocedural states; Z95.0 Presence of cardiac pacemaker; Z79.01 Long term (current) use of anticoagulants; Z79.899 Other long term (current) drug therapy; Z79.891 Long term (current) use of opiate analgesic; W19.XXXA Unspecified fall, initial encounter; Y93.89 Activity, other specified; Y92.098 Other place in other non-institutional residence as the place of occurrence of the external cause; Y99.8 Other external cause status
CPT/HCPCS: 73070; 73090; 96372; 96374; 99284; J1885; J2270

== ENCOUNTER 2019-04-23 00:08 | Emergency (ER) | payer MEDICARE ==
[~2019-04-23] VITALS: Ht 165.1 cm; Wt 64.9 kg
[2019-04-23 00:22] VITALS: BP 122/64
[2019-04-23] MEDS ORDERED: MAGNESIUM CITRATE ONE (00:27)
[2019-04-23] MEDS ORDERED: MAGNESIUM CITRATE PO STA (00:36)
--- NOTE | 2019-04-23 00:39 | ER.PDOC ---
General Chief Complaint: Requesting Medical Care Stated Complaint: CONSTIPATED Time seen by MD: 00:20 Source: patient Exam Limitations: no limitations History of Present Illness Initial Comments Pt states he has been constipated for greater than 24 hours. States it is a chronic recurrent problem usually resolved with an enema. He states he gave himself an enema without success this PM, requests enema here. No abdominal pain at this time. Timing/Duration: 24 hours Severity/Quality: mild Radiation: LLQ Associated Symptoms: denies symptoms Exacerbated by: nothing Relieved By: nothing Allergies: Coded Allergies: No Known Allergies (Unverified , 05/23/17) Home Meds Reported Medications Ropinirole Hcl (REQUIP) 0.5 Mg Tablet, 0.25 MG PO TID, TABLET 12/07/16 Albuterol Sulfate (ALBUTEROL SULFATE) 0.63 Mg/3 Ml Vial.neb, 1 VIAL NEB QID, #150 MILLILITER 1 Refill 12/07/16 Tramadol Hcl (TRAMADOL HCL) 50 Mg Tablet, 1 TAB PO Q4 for PAIN, #90 TAB 12/07/16 Rivaroxaban (XARELTO) 10 Mg Tablet, 15 MG PO DAILY, TABLET 12/07/16 Ramipril 2.5MG (ALTACE 2.5MG) 2.5 Mg Capsule, 1.25 MG PO DAILY, CAPSULE 03/10/16 Lubiprostone (AMITIZA) 24 Mcg Capsule, 1 CAP PO BID PRN for CONSTIPATION, #60 CAP 5 Refills 01/08/16 Cetirizine Hcl (CETIRIZINE HCL) 10 Mg Tablet, 1 TAB PO DAILY PRN for ALLERGERIES, #30 TAB 5 Refills 01/08/16 Docusate Sodium (DOCUSATE SODIUM) 100 Mg Capsule, 250 MG PO DAILY, CAPSULE 05/20/14 Gabapentin (GABAPENTIN) 300 Mg Capsule, 1 CAP PO TID, #90 CAP 5 Refills 03/24/14 Allopurinol (ALLOPURINOL) 300 Mg Tablet, 1 TAB PO DAILY, #30 TAB 5 Refills 03/24/14 Vital Signs First Vital Signs Date Time Temp Pulse Resp B/P (MAP) Pulse Ox O2 Delivery O2 Flow Rate FiO2 04/23/19 00:22 98.5 74 22 95 Room Air Last Vital Signs Date Time Temp Pulse Resp B/P (MAP) Pulse Ox O2 Delivery O2 Flow Rate FiO2 04/23/19 00:22 98.5 74 22 95 Room Air Past Medical History Medical History: cardiac problems, other Surgical History: back, cholecystectomy Social History Smoking: non-smoker Alcohol Use: none Drug Use: none Constitutional: no symptoms reported EENTM: no symptoms reported Respiratory: no symptoms reported Cardiovascular: no symptoms reported Gastrointestinal: constipated Genitourinary: no symptoms reported Musculoskeletal: no symptoms reported Skin: no symptoms reported Psychiatric/Neurological: no symptoms reported Physical Exam General Appearance: No Apparent Distress, WD/WN HEENT: PERRL/EOMI, Normal ENT Inspection, TMs Normal, Pharynx Normal Neck: Non-Tender, Full Range of Motion, Supple, Normal Inspection Respiratory: chest non-tender, lungs clear, normal breath sounds, no respiratory distress, no accessory muscle use Cardiovascular: Normal Peripheral Pulses, Regular Rate, Rhythm, No Edema, No Gallop, No JVD, No Murmur Gastrointestinal: Normal Bowel Sounds, Non Tender, Soft Back: Normal Inspection, No CVA Tenderness, No Vertebral Tenderness Extremities: Normal Range of Motion, Non-Tender, Normal Inspection, No Pedal Edema, No Calf Tenderness, Normal Capillary Refill, Pelvis Stable Neurologic/Psychiatric: merchandise flow team leader II-XII NML as Tested, No Motor/Sensory Deficits, Alert, Normal Mood/Affect, Oriented x 3 Skin: Normal Color, Warm/Dry Lymphatic: No Adenopathy Results/Orders Results/Orders Orders - CHRISTIAN BARROS MD Magnesium Citrate (Magnesium Citrate) (04/23/19 00:27) Vital Signs Date Time Temp Pulse Resp B/P (MAP) Pulse Ox O2 Delivery O2 Flow Rate FiO2 04/23/19 00:22 98.5 74 22 95 Room Air Course Duration or Total Time Spent w: 45 mins Vitals & review Data Vital Sign - Last 24 Hours 04/23/19 00:22 Temp 98.5 Pulse 74 Resp 22 Pulse Ox 95 O2 Delivery Room Air Sepsis Infection Criteria Pres: None O2 Sat by Pulse Oximetry: 95 Departure Time of Disposition: 00:38 Disposition: 01 HOME, SELF-CARE Impression: Primary Impression: Constipation Condition: Stable Referrals: ARIEL CAMPBELL SENSITOMETRIST (PCP) PRIMARY CARE PROVIDER Additional Instructions: Use Miralax daily for recurrent constipation Duration or Time Spent with Pa: 10 Problem Qualifiers Primary Impression: Constipation Constipation type: chronic idiopathic constipation Qualified Codes: K59.04 - Chronic idiopathic constipation CHRISTIAN BARROS MD Apr 23, 2019 00:39
== END 2019-04-23 01:05 | disposition home or self-care (01) ==
LOC: ER 00:08
DX: K59.04 Chronic idiopathic constipation (principal); Z79.01 Long term (current) use of anticoagulants; Z79.899 Other long term (current) drug therapy; Z90.49 Acquired absence of other specified parts of digestive tract
CPT/HCPCS: 99282

== ENCOUNTER 2019-05-04 16:29 | Emergency (ER) | payer MEDICARE ==
[~2019-05-04] VITALS: Ht 165.1 cm; Wt 61.7 kg
[2019-05-04 16:50] VITALS: BP_SYST 104; BP_SYST 99; BP_DIAS 55; BP_DIAS 62
--- NOTE | 2019-05-04 17:31 | ER.PDOC ---
General Chief Complaint: Extremities Stated Complaint: SHOULDER INJURY Time seen by MD: 17:33 Source: patient Exam Limitations: no limitations History of Present Illness Initial Comments SEEN ELSWHERE , IN [facility] AND SHOULDER IMMOBILIZER Occurred: last week Where: home Severity: moderate Modifying Factors: pain on movement Allergies: Coded Allergies: No Known Allergies (Unverified , 05/23/17) Home Meds Reported Medications Ropinirole Hcl (REQUIP) 0.5 Mg Tablet, 0.25 MG PO TID, TABLET 12/07/16 Albuterol Sulfate (ALBUTEROL SULFATE) 0.63 Mg/3 Ml Vial.neb, 1 VIAL NEB QID, #150 MILLILITER 1 Refill 12/07/16 Tramadol Hcl (TRAMADOL HCL) 50 Mg Tablet, 1 TAB PO Q4 for PAIN, #90 TAB 12/07/16 Rivaroxaban (XARELTO) 10 Mg Tablet, 15 MG PO DAILY, TABLET 12/07/16 Ramipril 2.5MG (ALTACE 2.5MG) 2.5 Mg Capsule, 1.25 MG PO DAILY, CAPSULE 03/10/16 Lubiprostone (AMITIZA) 24 Mcg Capsule, 1 CAP PO BID PRN for CONSTIPATION, #60 CAP 5 Refills 01/08/16 Cetirizine Hcl (CETIRIZINE HCL) 10 Mg Tablet, 1 TAB PO DAILY PRN for ALLERGERIES, #30 TAB 5 Refills 01/08/16 Docusate Sodium (DOCUSATE SODIUM) 100 Mg Capsule, 250 MG PO DAILY, CAPSULE 05/20/14 Gabapentin (GABAPENTIN) 300 Mg Capsule, 1 CAP PO TID, #90 CAP 5 Refills 03/24/14 Allopurinol (ALLOPURINOL) 300 Mg Tablet, 1 TAB PO DAILY, #30 TAB 5 Refills 03/24/14 Past Medical History Medical History: diabetes Surgical History: pacemaker/ICD Social History Smoking: non-smoker Alcohol Use: none Drug Use: none Reviewed Nursing Reviewed: Vital Signs, Abn. Noted Review of Systems All Other Systems: Reviewed and Negative Physical Exam General Appearance: Alert, No Apparent Distress Hand: tenderness, swelling Wrist: see diagram, tenderness Forearm/Elbow: nml inspection, non-tender, nml ROM Arm/Shoulder: nml inspection, see diagram, tenderness 1 - TENDER 2 - IN BRACE Neuro/Vasc/Tendon: sensation nml, motor nml, no vascular compromise, tendon function nml Skin: warm/dry Head/ENT: nml inspection, pharynx nml Neck/Back: nml inspection, non-tender Respiratory: chest non-tender, breath sounds nml CVS: heart sounds normal Abdomen: non-tender, no organomegaly Results/Orders Results/Orders Orders - JAMES BARRAZA MD Xr Shoulder Rt 2v (05/04/19 17:00) Xr Wrist Rt (05/04/19 17:01) Vital Signs Date Time Temp Pulse Resp B/P (MAP) Pulse Ox O2 Delivery O2 Flow Rate FiO2 05/04/19 16:50 98.4 77 18 05/04/19 16:50 98.4 77 18 96 Room Air 05/04/19 16:50 98.4 77 18 99/62 (74) 96 Room Air Departure Time of Disposition: 17:33 Disposition: 01 HOME, SELF-CARE Impression: Primary Impression: Shoulder sprain Condition: Stable Referrals: ARIEL CAMPBELL SPECIFICATION MANAGER (PCP) PRIMARY CARE PROVIDER Duration or Time Spent with Pa: 20 M JAMES BARRAZA MD May 04, 2019 17:30
--- NOTE | 2019-05-04 17:40 | DIREP ---
PROCEDURE:XRAY WRIST MIN 3VW-RT COMPARISON:[facility], , XRAY WRIST MIN 3VW-LT, 01/06/2018, 09:31 PM. INDICATIONS:FALL rt wrist pain FINDINGS: BONES:Small osteophytes at the distal radius, ulna, distal scaphoid, 1st CMC joint, MCP joints, triquetrum bone. JOINTS:Joint space loss at the 4th MCP joint. SOFT TISSUES:Normal. OTHER:No additional findings. CONCLUSION:Multifocal degenerative changes. Severe peripheral vascular disease. No visible acute fracture. Dictated by: Frank Strong M.D. on 05/04/2019 at 05:38 PM
--- NOTE | 2019-05-04 17:41 | DIREP ---
PROCEDURE:XRAY SHOULDER MIN 2 VWS-RT COMPARISON:None. INDICATIONS:FALL rt shoulder pain FINDINGS: BONES:Osteophytes at the AC joint, glenoid and humeral head. Bones are osteopenic. No visible displaced fracture. JOINTS:No visible dislocation. Calcified bodies posterior joint space. SOFT TISSUES:Right chest pacemaker device. OTHER:Normal. 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 No visible displaced fracture. Dictated by: Frank Strong M.D. on 05/04/2019 at 05:39 PM
== END 2019-05-04 17:43 | disposition home or self-care (01) ==
LOC: ER 16:29
DX: S43.401A Unspecified sprain of right shoulder joint, initial encounter (principal); E11.9 Type 2 diabetes mellitus without complications; Z79.01 Long term (current) use of anticoagulants; Z79.899 Other long term (current) drug therapy; Z95.0 Presence of cardiac pacemaker; W19.XXXA Unspecified fall, initial encounter; Y93.89 Activity, other specified; Y92.89 Other specified places as the place of occurrence of the external cause; Y99.8 Other external cause status
CPT/HCPCS: 29105; 99284; 73030-RT; 73110-RT

== ENCOUNTER → 2019-07-11 | Outpatient (CLI) | payer MEDICARE ==
--- NOTE | 2019-07-11 16:18 | DIREP ---
PROCEDURE:XRAY HIP MIN 2VW-RT and frontal pelvis, 3 images COMPARISON:None. INDICATIONS:M25.551 PAIN IN RIGHT HIP FINDINGS: BONES:Normal. JOINTS:Normal, except for mild degenerative arthritis of the right and left hips. SOFT TISSUES:Normal. OTHER:Vascular calcification. 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 No acute fracture or subluxation. Dictated by: Haim Bryan M.D. on 07/11/2019 at 04:15 PM
== END | disposition home or self-care (01) ==
LOC: RAD 15:09
PROVIDERS: ATTEND Nurse Practitioner Family
DX: M13.852 Other specified arthritis, left hip (principal); M13.851 Other specified arthritis, right hip
CPT/HCPCS: 73502

== ENCOUNTER → 2019-08-22 | Outpatient (CLI) | payer MEDICARE ==
--- NOTE | 2019-08-22 15:15 | DIREP ---
PROCEDURE:US DUPLEX EXTREM VEINS UNILATER/LIMITED-RT COMPARISON:None. INDICATIONS:M25.551 PAIN IN RIGHT HIP TECHNIQUE:The right lower extremity was evaluated utilizing julian scale images with segmental compression, color Doppler, and spectral Doppler with respiratory variation and augmentation. FINDINGS: Common femoral vein:Patent Superficial femoral vein:Patent Popliteal vein:Patent Posterior tibial vein:Patent Anterior tibial vein:Patent Greater saphenous vein:Patent Waveforms: Within normal limits. CONCLUSION: 1. No evidence of deep venous thrombosis within the right lower extremity. Dictated by: Lei Murphy M.D. on 08/22/2019 at 02:13 PM
== END | disposition home or self-care (01) ==
LOC: RAD 13:16
PROVIDERS: ATTEND Nurse Practitioner Family
DX: M25.551 Pain in right hip (principal); M79.651 Pain in right thigh
CPT/HCPCS: 93971

== ENCOUNTER → 2019-08-30 | Outpatient (CLI) | payer MEDICARE ==
--- NOTE | 2019-08-30 15:14 | DIREP ---
PROCEDURE:CT ABDOMEN/PELVIS W/O CONTRAST COMPARISON:[facility], CT, CT-ABDOMEN /PELVIS W/O CONTRAST, 03/26/2014, 11:08 PM. 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 No oral contrast was administered. Sagittal and coronal reconstructions were performed from source images. FINDINGS: LUNG BASES:Cardiac pacing wires. Coronary artery calcium LIVER:Normal. No significant liver lesions are identified. BILIARY:Normal. No visible dilatation or calcification. PANCREAS:Normal. No lesion, fluid collection, ductal dilatation, or atrophy. SPLEEN:Normal. No enlargement or focal lesion. ADRENALS:Normal. No mass or enlargement. URINARY TRACT: Simple appearing right renal cyst(s). Nonobstructing right renal stones measuring up to 8 mm. Nonobstructing left renal stone measures 5 mm. AORTA/VASCULAR:Normal. No aneurysm. RETROPERITONEUM:Normal. No mass or adenopathy. BOWEL/MESENTERY:Normal. There is no intestinal obstruction, free fluid, free air or mesenteric inflammatory changes. ABDOMINAL WALL:Normal. No mass or hernia. PELVIC ORGANS:Normal. No visible mass. Pelvic organs appropriate for patient age. BONES:Degenerative and postoperative changes involve the spine OTHER:Negative. CONCLUSION: 1. Nonobstructing bilateral renal stones Dictated by: Aj Landa Jr. on 08/30/2019 at 02:57 PM
== END | disposition home or self-care (01) ==
LOC: CT 10:32
PROVIDERS: ATTEND Nurse Practitioner Family
DX: N20.0 Calculus of kidney (principal)
CPT/HCPCS: 74176

== ENCOUNTER 2019-09-06 08:45 | Emergency (ER) | payer MEDICARE ==
[~2019-09-06] VITALS: Ht 167.6 cm; Wt 63.5 kg
[2019-09-06 09:03] VITALS: BP 124/70
--- NOTE | 2019-09-06 09:15 | ER.PDOC ---
General Chief Complaint: General Complaint Stated Complaint: MALE Time seen by MD: 09:08 Source: patient Exam Limitations: no limitations History of Present Illness Initial Comments pt c/o constipation x 1 day, last BM yesterday; he feels pressure in his rectum this morning and tried an enema at home without relief; he is requesting an enema here today; no c/o abdominal pain or n/v; reports no history of obstruction Timing/Duration: 1-3 hours Severity/Quality: moderate, aching, fullness (in rectum) Radiation: no radiation Associated Symptoms: denies symptoms Allergies: Coded Allergies: No Known Allergies (Unverified , 05/23/17) Home Meds Reported Medications Ropinirole Hcl (REQUIP) 0.5 Mg Tablet, 0.25 MG PO TID, TABLET 12/07/16 Albuterol Sulfate (ALBUTEROL SULFATE) 0.63 Mg/3 Ml Vial.neb, 1 VIAL NEB QID, #150 MILLILITER 1 Refill 12/07/16 Tramadol Hcl (TRAMADOL HCL) 50 Mg Tablet, 1 TAB PO Q4 for PAIN, #90 TAB 12/07/16 Rivaroxaban (XARELTO) 10 Mg Tablet, 15 MG PO DAILY, TABLET 12/07/16 Ramipril 2.5MG (ALTACE 2.5MG) 2.5 Mg Capsule, 1.25 MG PO DAILY, CAPSULE 03/10/16 Lubiprostone (AMITIZA) 24 Mcg Capsule, 1 CAP PO BID PRN for CONSTIPATION, #60 CAP 5 Refills 01/08/16 Cetirizine Hcl (CETIRIZINE HCL) 10 Mg Tablet, 1 TAB PO DAILY PRN for ALLERGERIES, #30 TAB 5 Refills 01/08/16 Docusate Sodium (DOCUSATE SODIUM) 100 Mg Capsule, 250 MG PO DAILY, CAPSULE 05/20/14 Gabapentin (GABAPENTIN) 300 Mg Capsule, 1 CAP PO TID, #90 CAP 5 Refills 03/24/14 Allopurinol (ALLOPURINOL) 300 Mg Tablet, 1 TAB PO DAILY, #30 TAB 5 Refills 03/24/14 Vital Signs First Vital Signs Date Time Temp Pulse Resp B/P (MAP) Pulse Ox O2 Delivery O2 Flow Rate FiO2 09/06/19 09:03 97.5 72 18 95 Last Vital Signs Date Time Temp Pulse Resp B/P (MAP) Pulse Ox O2 Delivery O2 Flow Rate FiO2 09/06/19 09:03 97.5 72 18 95 Past Medical History Medical History: diabetes, other (constipation) Surgical History: back, pacemaker/ICD Family History Significant Family History: no pertinent family hx Social History Alcohol Use: none Drug Use: none Constitutional: no symptoms reported EENTM: no symptoms reported Respiratory: no symptoms reported Cardiovascular: no symptoms reported Gastrointestinal: see HPI Genitourinary: no symptoms reported Musculoskeletal: no symptoms reported Skin: no symptoms reported Endocrine: no symptoms reported Hematologic/Lymphatic: no symptoms reported Physical Exam General Appearance: No Apparent Distress, WD/WN Respiratory: lungs clear, normal breath sounds, no respiratory distress, no accessory muscle use Cardiovascular: Normal Peripheral Pulses, Regular Rate, Rhythm Gastrointestinal: Normal Bowel Sounds, Non Tender, Soft Extremities: Normal Range of Motion, Non-Tender Neurologic/Psychiatric: Alert, Normal Mood/Affect, Oriented x 3 Skin: Normal Color, Warm/Dry Lymphatic: No Adenopathy Results/Orders Results/Orders Vital Signs Date Time Temp Pulse Resp B/P (MAP) Pulse Ox O2 Delivery O2 Flow Rate FiO2 09/06/19 09:03 97.5 72 18 95 Course Duration or Total Time Spent w: 20 M Vitals & review Data Vital Sign - Last 24 Hours 09/06/19 09:03 Temp 97.5 Pulse 72 Resp 18 Pulse Ox 95 Sepsis Infection Criteria Pres: None O2 Sat by Pulse Oximetry: 95 Departure Time of Disposition: 09:14 Disposition: 01 HOME, SELF-CARE Impression: Primary Impression: Constipation by delayed colonic transit Condition: Stable Patient Instructions: Constipation, Adult Referrals: ARIEL CAMPBELL CLOTHING BUSHELER (PCP) PRIMARY CARE PROVIDER Additional Instructions: Take miralax as directed per package instructions. Return to ER if you experience abdominal pain, nausea, vomiting, or any other concerns. Duration or Time Spent with Pa: 5 minutes VIRI BOYD DO Sep 06, 2019 09:15
[2019-09-06 09:28] VITALS: BP 117/75
== END 2019-09-06 09:26 | disposition home or self-care (01) ==
LOC: ER 08:45
DX: K59.00 Constipation, unspecified (principal); E11.9 Type 2 diabetes mellitus without complications; Z95.0 Presence of cardiac pacemaker; Z79.899 Other long term (current) drug therapy; Z79.01 Long term (current) use of anticoagulants
CPT/HCPCS: 99282

== ENCOUNTER 2020-09-15 15:35 | Emergency (ER) | payer MEDICARE ==
[~2020-09-15] VITALS: Ht 167.6 cm; Wt 60.3 kg
[2020-09-15 15:47] VITALS: BP 130/79
--- NOTE | 2020-09-15 15:51 | NUR ---
ARRIVAL PATIENT ARRIVED TO ED6 AMBULATORY, C/O OF LEFT UPPER QUADRANT PAIN SINCE LAST NIGHT, PAIN COMES AND GOES, DECIDED TO COME TO THE ED FOR EVAL, NO DISTRESS NOTED. VITAL SIGNS OBTAINED AND DOCTOR ROSA ELENA NOTIFIED OF PATIENT'S ARRIVAL.
--- NOTE | 2020-09-15 16:05 | NUR ---
CAT SCAN PATIENT TO CAT SCAN WITH MAGDA FROM RADIOLOGY.
--- NOTE | 2020-09-15 16:09 | ER.PDOC ---
General Chief Complaint: Abdomen Pain Stated Complaint: GI PAIN Time seen by MD: 16:08 Source: patient Exam Limitations: no limitations History of Present Illness Initial Comments Abdominal pain located in the left upper quadrant since this morning. Pain is about a 2 out of 10, nonradiating, nothing makes it worse or better. No nausea, vomiting or diarrhea. He's got issues with chronic constipation. No fever or chills. Severity/Quality: mild, dullness Radiation: no radiation Associated Symptoms: denies symptoms Exacerbated by: nothing Relieved By: nothing Allergies: Coded Allergies: No Known Allergies (Unverified , 05/23/17) Home Meds Reported Medications Ropinirole Hcl (REQUIP) 0.5 Mg Tablet, 0.25 MG PO TID, TABLET 12/07/16 Albuterol Sulfate (ALBUTEROL SULFATE) 0.63 Mg/3 Ml Vial.neb, 1 VIAL NEB QID, # 150 MILLILITER 1 Refill 12/07/16 Tramadol Hcl (TRAMADOL HCL) 50 Mg Tablet, 1 TAB PO Q4 for PAIN, #90 TAB 12/07/16 Rivaroxaban (XARELTO) 10 Mg Tablet, 15 MG PO DAILY, TABLET 12/07/16 Ramipril 2.5MG (ALTACE 2.5MG) 2.5 Mg Capsule, 1.25 MG PO DAILY, CAPSULE 03/10/16 Lubiprostone (AMITIZA) 24 Mcg Capsule, 1 CAP PO BID PRN for CONSTIPATION, #60 CAP 5 Refills 01/08/16 Cetirizine Hcl (CETIRIZINE HCL) 10 Mg Tablet, 1 TAB PO DAILY PRN for ALLERGERIES, #30 TAB 5 Refills 01/08/16 Docusate Sodium (DOCUSATE SODIUM) 100 Mg Capsule, 250 MG PO DAILY, CAPSULE 05/20/14 Gabapentin (GABAPENTIN) 300 Mg Capsule, 1 CAP PO TID, #90 CAP 5 Refills 03/24/14 Allopurinol (ALLOPURINOL) 300 Mg Tablet, 1 TAB PO DAILY, #30 TAB 5 Refills 03/24/14 Vital Signs First Vital Signs Date Time Temp Pulse Resp B/P (MAP) Pulse Ox O2 Delivery O2 Flow Rate FiO2 09/15/20 15:47 97.7 89 18 130/79 (96) 97 Room Air Last Vital Signs Date Time Temp Pulse Resp B/P (MAP) Pulse Ox O2 Delivery O2 Flow Rate FiO2 2/15/21 16:44 97.7 78 18 116/77 (90) 97 Room Air Past Medical History Medical History: cardiac problems Surgical History: back, pacemaker/ICD Family History Significant Family History: no pertinent family hx Social History Smoking: non-smoker Alcohol Use: none Drug Use: none Constitutional: no symptoms reported EENTM: no symptoms reported Respiratory: no symptoms reported Cardiovascular: no symptoms reported Gastrointestinal: see HPI Genitourinary: no symptoms reported All Other Systems: Reviewed and Negative Physical Exam General Appearance: No Apparent Distress, WD/WN Neck: Non-Tender, Full Range of Motion, Supple, Normal Inspection Respiratory: chest non-tender, lungs clear, normal breath sounds, no respiratory distress, no accessory muscle use Cardiovascular: Normal Peripheral Pulses, Regular Rate, Rhythm, No Edema, No Gallop, No JVD, No Murmur Gastrointestinal: Normal Bowel Sounds, No Organomegaly, No Pulsatile Mass, T enderness (LUQ) Back: Normal Inspection, No CVA Tenderness, No Vertebral Tenderness Extremities: Normal Range of Motion, Non-Tender, Normal Inspection, No Pedal Edema, No Calf Tenderness, Normal Capillary Refill, Pelvis Stable Neurologic/Psychiatric: 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 (09/15/20 16:00) Urinalysis (09/15/20 16:00) Ct Abd/Pelvis Wo Iv Contrast (09/15/20 16:00) Ekg-Routine (09/15/20 16:00) Vital Signs Date Time Temp Pulse Resp B/P (MAP) Pulse Ox O2 Delivery O2 Flow Rate FiO2 09/15/20 16:44 97.7 78 18 116/77 (90) 97 Room Air 09/15/20 15:47 97.7 89 18 09/15/20 15:47 97.7 89 18 97 09/15/20 15:47 97.7 89 18 130/79 (96) 97 Room Air Laboratory Tests Test 09/15/20 16:00 09/15/20 16:20 White Blood Count 8.3 10^3/uL (4.5-11.0) Red Blood Count 4.28 10^6/uL (4.50-5.90) L Hemoglobin 13.5 g/dL (13.9-16.3) L Hematocrit 39.9 % (37.0-53.0) Mean Corpuscular Volume 93.2 fL (78-100) Mean Corpuscular Hemoglobin 31.5 pg (26-34) Mean Corpuscular Hemoglobin Concent 33.8 g/dL (33-36.5) Red Cell Distribution Width 14.6 % (11.5-14.5) H Platelet Count 184 10^3/uL (150-400) Mean Platelet Volume 10.0 fL (7.8-11.0) Neutrophils (%) (Auto) 56.4 % (41.0-85.0) Lymphocytes (%) (Auto) 29.9 % (24.0-44.0) Monocytes (%) (Auto) 8.9 % (5.0-12.0) Neutrophils # (Auto) 4.7 10^3/uL (1.8-7.7) Lymphocytes # (Auto) 2.48 10^3/uL1 (1.0-4.8) Monocytes # (Auto) 0.7 10^3/uL (0.3-0.8) Absolute Immature Granulocyte (auto 0.01 10^3 u/L (0-2) Absolute Eosinophils (auto) 0.4 10^3/uL (0.0-0.2) H Immature Granulocytes % 0.10 % (0.00-0.50) Eosinophils % 4.5 % (0.0-5.0) Basophils % 0.2 % (0.0-0.2) Basophils # 0.0 10^3/uL (0.0-0.1) Prothrombin Time 10.9 SEC (9.3-11.3) Prothrombin Time INR (Non-Therap) 1.1 Activated Partial Thromboplast Time 26.7 SEC (24.67-30.72) Sodium Level 141 mmol/L (132-145) Potassium Level 4.5 mmol/L (3.6-5.2) Chloride Level 105.0 mmol/L (96-109) Carbon Dioxide Level 24.4 mmol/L (20.0-32) Anion Gap 16.1 Blood Urea Nitrogen 38 mg/dL (7-18) H Creatinine 1.37 mg/dL (0.59-1.40) Estimated GFR () 59.2 (>/=60) Est GFR (CKD-EPI)(Non-Afr [place]) 48.9 (>/=60) BUN/Creatinine Ratio 27.0 Glucose Level 104 mg/dL (70-110) Calcium Level 9.7 mg/dL (8.4-10.5) Total Bilirubin 0.4 mg/dL (0.2-1.0) Aspartate Amino Transferase (AST) 21 U/L (0-35) Alanine Aminotransferase (ALT) 32 U/L (12-78) Alkaline Phosphatase 75 U/L (50-136) Total Protein 7.6 g/dL (6.4-8.2) Albumin 4.0 g/dL (3.4-5.0) Globulin 3.6 Albumin/Globulin Ratio 1.111 Lipase 241 U/L (114-286) Helicobacter pylori Screen NEGATIVE (NEGATIVE) Urine Collection Type UNKNOWN Urine Color YELLOW (YELLOW) Urine Appearance CLEAR (CLEAR) Urine Bilirubin NEGATIVE MG/DL (NEGATIVE) Urine Ketones NEGATIVE (NEGATIVE) Urine Specific [place] <1.005 (1.005-1.035) Urine pH 5.5 (5.0-6.0) Urine Protein NEGATIVE (NEGATIVE) Urine Urobilinogen NORMAL (NEGATIVE) Urine Nitrate NEGATIVE (NEGATAIVE) Urine Leukocyte Esterase NEGATIVE (NEGATIVE) Urine Blood NEGATIVE (NEGATIVE) Urine Glucose NORMAL (NEGATIVE) Progress Progress CT abdomen/pelvis: No acute intra-abdominal abnormality is identified. Bilateral nephrolithiasis. No ureteral or bladder calculi are identified. No hydronephrosis. 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 Asymmetric increased soft tissue density within the left posterior lateral aspect of the urinary bladder near the left ureterovesicular junction does raise concern for potential underlying bladder lesion. Consider further evaluation with cystoscopy as clinically warranted. 2. Increased fecal burden within the colon. No gross colonic abnormality is identified. Normal appendix. 3. Unremarkable CT appearance of the gallbladder; however, there is mild prominence of the extrahepatic biliary tree which is similar to the previous study. Labs are unremarkable. Reviewed labs and CT with patient. EKG/XRAY/CT/US EKG: NSR, no ST T wave changes EKG Comments: Rate 77, Left axis deviation ER DEPART Departure Time of Disposition: 16:57 Disposition: 01 HOME, SELF-CARE Impression: Primary Impression: Abdominal pain, other specified site Additional Impression: Constipation Condition: Stable Referrals: ARIEL CAMPBELL MOLDER WAX BALL (PCP) PRIMARY CARE PROVIDER Additional Instructions: Magnesium citrate Follow-up with your PCP in 2 to 3 days Return to ED if worsening pain or concerns Duration or Time Spent with Pa: 45 min Problem Qualifiers Additional Impression: Constipation Constipation type: unspecified constipation type Qualified Codes: K59.00 - Constipation, unspecified LOI CUBA MD Sep 15, 2020 16:09
[2020-09-15 16:17] LABS: BASOPHIL % 0.2 % (0.0-0.2); EOSINOPHIL # 0.4 10^3/uL (0.0-0.2); EOSINOPHIL % 4.5 % (0.0-5.0); LYMPHOCYTES # 2.48 10^3/uL1 (1.0-4.8); LYMPHOCYTES % 29.9 % (24.0-44.0); MEAN CORP HGB 31.5 pg (26-34); MONOCYTES # 0.7 10^3/uL (0.3-0.8); MONOCYTES % 8.9 % (5.0-12.0); NEUTROPHIL # 4.7 10^3/uL (1.8-7.7); NEUTROPHILS % 56.4 % (41.0-85.0); PLATELET COUNT 184 10^3/uL (150-400); RED CELL DISTRIBUTION WIDTH 14.6 % (11.5-14.5)
--- NOTE | 2020-09-15 16:20 | NUR ---
CAT SCAN PATIENT BACK FROM CAT SCAN.
--- NOTE | 2020-09-15 16:22 | PCM.EKG ---
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
--- NOTE | 2020-09-15 16:32 | DIREP ---
PROCEDURE:CT ABDOMEN/PELVIS W/O CONTRAST COMPARISON:[facility], CT, CT ABD/PELVIS W/O, 08/30/2019, 11:39 AM. INDICATIONS:Left upper abdominal pain TECHNIQUE:Axial images were created through the abdomen and pelvis without intravenous contrast material. No oral contrast was administered. Sagittal and coronal reconstructions were performed from source images. FINDINGS: LUNG BASES:No suspicious airspace consolidation or pleural effusion. Calcified granuloma within the lingula. Dense mitral annular calcifications. LIVER:No suspicious focal hepatic lesion. BILIARY:The gallbladder is relatively contracted. No radiopaque calculi are identified. There is no overt gallbladder wall thickening or pericholecystic inflammatory stranding. Mild prominence of the extrahepatic biliary tree. PANCREAS:No suspicious pancreatic abnormality. SPLEEN:The spleen is not significantly enlarged. No focal splenic lesion identified. ADRENALS:The adrenal glands are unremarkable. URINARY TRACT:Bilateral nephrolithiasis. There is a mildly dilated right extrarenal pelvis with abrupt transition to nondilated right ureter, suggesting longstanding partial UPJ obstruction. No ureteral calculi or hydronephrosis. Exophytic right renal cyst. AORTA/VASCULAR:Scattered atherosclerotic calcifications without aneurysmal dilatation. RETROPERITONEUM:No suspicious retroperitoneal lymphadenopathy. BOWEL/MESENTERY:No evidence for small bowel obstruction. Moderate to large fecal burden within the rectum. [id number] fecal burden throughout the remainder of the colon. No gross colonic abnormality is identified. Normal appendix. No free air. ABDOMINAL WALL:No significant hernia. PELVIC ORGANS:The urinary bladder is mildly distended. There is asymmetric increased soft tissue density along the left posterior aspect of the urinary bladder near the left ureterovesicular junction. A potential underlying bladder lesion is not excluded. The prostate gland is diminutive. No free fluid. BONES:Degenerative changes of the hips and spine. No acute abnormality. CONCLUSION: 1. No acute intra-abdominal abnormality is identified. Bilateral nephrolithiasis. No ureteral or bladder calculi are identified. No hydronephrosis. 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 Asymmetric increased soft tissue density within the left posterior lateral aspect of the urinary bladder near the left ureterovesicular junction does raise concern for potential underlying bladder lesion. Consider further evaluation with cystoscopy as clinically warranted. 2. Increased fecal burden within the colon. No gross colonic abnormality is identified. Normal appendix. 3. Unremarkable CT appearance of the gallbladder; however, there is mild prominence of the extrahepatic biliary tree which is similar to the previous study. 4. Additional findings as discussed above. Dictated by: Dank Carter M.D. On 09/15/2020 at 04:17 PM
[2020-09-15 16:39] LABS: CALCIUM 9.7 mg/dL (8.4-10.5); CARBON DIOXIDE 24.4 mmol/L (20.0-32)
[2020-09-15 16:42] LABS: APPEARANCE,URINE CLEAR (CLEAR); BILIRUBIN,URINE NEGATIVE (NEGATIVE); UA COLOR YELLOW (YELLOW); UROBILINOGEN,URINE NORMAL (NEGATIVE)
[2020-09-15 16:44] VITALS: BP 116/77
== END 2020-09-15 17:02 | disposition home or self-care (01) ==
LOC: ER 15:35
DX: K59.09 Other constipation (principal); Z79.01 Long term (current) use of anticoagulants; Z79.899 Other long term (current) drug therapy; Z95.0 Presence of cardiac pacemaker
CPT/HCPCS: 36415; 74176; 80053; 81003; 83690; 85025; 85610; 85730; 86677; 93005; 99285

== ENCOUNTER 2021-02-06 15:13 | Emergency (ER) | payer MEDICARE ==
[~2021-02-06] VITALS: Ht 170.2 cm; Wt 59.0 kg
--- NOTE | 2021-02-06 15:20 | NUR ---
ARRIVAL PT ARRIVED TO ED WITH C/O POSSIBLE LOW BLOOD SUGAR. PT STATES HIS BLOOD SUGAR MACHINE AT HOME WAS NOT WORKING, HE CAME HERE TO CONFIRM THAT HIS BLOOD SUGAR LEVEL IS NORMAL. D STICK 78. BEDSIDE MONITORS APPLIED. VITAL SIGNS STABLE. BED IN LOW LOCKED POSITION.
[2021-02-06 15:28] VITALS: BP 122/76
--- NOTE | 2021-02-06 15:35 | ER.PDOC ---
General Chief Complaint: General Complaint Stated Complaint: POSS LOW BLOOD SUGAR TRAVEL OUT OF US: No Time seen by MD: 15:33 Source: patient Exam Limitations: no limitations History of Present Illness Initial Comments Patient sent by primary care physician to have his blood sugar checked.Patient sent by primary care physician to have his blood sugar checked. Patient states home glucometer is not functioning properly Allergies: Coded Allergies: No Known Allergies (Unverified , 05/23/17) Home Meds Reported Medications Ropinirole Hcl (REQUIP) 0.5 Mg Tablet, 0.25 MG PO TID, TABLET 12/07/16 Albuterol Sulfate (ALBUTEROL SULFATE) 0.63 Mg/3 Ml Vial.neb, 1 VIAL NEB QID, #150 MILLILITER 1 Refill 12/07/16 Tramadol Hcl (TRAMADOL HCL) 50 Mg Tablet, 1 TAB PO Q4 for PAIN, #90 TAB 12/07/16 Rivaroxaban (XARELTO) 10 Mg Tablet, 15 MG PO DAILY, TABLET 12/07/16 Ramipril 2.5MG (ALTACE 2.5MG) 2.5 Mg Capsule, 1.25 MG PO DAILY, CAPSULE 03/10/16 Lubiprostone (AMITIZA) 24 Mcg Capsule, 1 CAP PO BID PRN for CONSTIPATION, #60 CAP 5 Refills 01/08/16 Cetirizine Hcl (CETIRIZINE HCL) 10 Mg Tablet, 1 TAB PO DAILY PRN for ALLERGERIES, #30 TAB 5 Refills 01/08/16 Docusate Sodium (DOCUSATE SODIUM) 100 Mg Capsule, 250 MG PO DAILY, CAPSULE 05/20/14 Gabapentin (GABAPENTIN) 300 Mg Capsule, 1 CAP PO TID, #90 CAP 5 Refills 03/24/14 Allopurinol (ALLOPURINOL) 300 Mg Tablet, 1 TAB PO DAILY, #30 TAB 5 Refills 03/24/14 Past Medical History Medical History: cardiac problems Surgical History: back, pacemaker/ICD Social History Alcohol Use: none Drug Use: none Review of Systems Constitutional: no symptoms reported Respiratory: no symptoms reported Gastrointestinal: no symptoms reported Musculoskeletal: no symptoms reported Skin: no symptoms reported Psychiatric/Neurological: no symptoms reported Physical Exam General Appearance: No Apparent Distress, WD/WN Neck: Full Range of Motion Respiratory: no respiratory distress Extremities: Normal Range of Motion Neurologic/Psychiatric: Alert, Normal Mood/Affect, Oriented x 3 Results/Orders Results/Orders Vital Signs Date Time Temp Pulse Resp B/P (MAP) Pulse Ox O2 Delivery O2 Flow Rate FiO2 02/06/21 15:28 97.5 77 18 02/06/21 15:28 97.5 77 18 122/76 (91) 99 Room Air 02/06/21 15:28 97.5 77 18 99 Laboratory Tests Test 02/06/21 15:26 POC Glucose 78 (70 - 110) Progress Progress Patient blood sugar 78 which is within normal range according to the patient. He does not have any other complaints at this time. ER DEPART Departure Time of Disposition: 15:41 Disposition: 01 HOME / SELF CARE / HOMELESS Impression: Primary Impression: Visit for well [place] [facility] check Additional Impression: Diabetes Condition: Stable Referrals: ARIEL CAMPBELL ROOF TRUSS MACHINE TENDER (PCP) PRIMARY CARE PROVIDER Duration or Time Spent with Pa: 3 min Problem Qualifiers FRANNY CONTRERAS MD Feb 06, 2021 15:35
== END 2021-02-06 15:49 ==
LOC: ER 15:13
DX: E11.9 Type 2 diabetes mellitus without complications (principal); Z79.01 Long term (current) use of anticoagulants; Z79.899 Other long term (current) drug therapy; Z95.0 Presence of cardiac pacemaker
CPT/HCPCS: 82948; 99282

== ENCOUNTER → 2021-02-09 | Outpatient (CLI) | payer MEDICARE ==
[2021-02-09 18:41] LABS: BASOPHIL # 0.1 10^3/uL (0.0-0.1); BASOPHIL % 0.7 % (0.0-0.2); EOSINOPHIL # 0.5 10^3/uL (0.0-0.2); EOSINOPHIL % 7.2 % (0.0-5.0); LYMPHOCYTES # 2.41 10^3/uL1 (1.0-4.8); MEAN CORP HGB 29.9 pg (26-34); MONOCYTES # 0.7 10^3/uL (0.3-0.8); MONOCYTES % 8.9 % (5.0-12.0); NEUTROPHIL # 3.9 10^3/uL (1.8-7.7); NEUTROPHILS % 51.1 % (41.0-85.0); PLATELET COUNT 197 10^3/uL (150-400); RED CELL DISTRIBUTION WIDTH 14.2 % (11.5-14.5)
[2021-02-09 19:09] LABS: CALCIUM 9.2 mg/dL (8.4-10.5); CARBON DIOXIDE 27.7 mmol/L (20.0-32)
== END | disposition home or self-care (01) ==
LOC: NPLAB 18:12
PROVIDERS: ATTEND Nurse Practitioner Family
DX: R97.20 Elevated prostate specific antigen [PSA] (principal); I10 Essential (primary) hypertension; E11.9 Type 2 diabetes mellitus without complications
CPT/HCPCS: 36415; 80053; 80061; 83036; 84153; 84439; 84443; 85025